=== PATIENT | male | born 1980 | race Caucasian/White ===

== ENCOUNTER 2017-12-15 10:38 | Emergency (ER) | payer OTHER, SELFPAY ==
[2017-12-15 10:39] VITALS: BP 113/89; PULSE 66; RESP 22; TEMP 36.6; O2SAT 100; BMI 22.1
--- NOTE | 2017-12-15 10:49 | CT_ITS ---
STUDY: CT BRAIN WITHOUT CONTRAST REASON FOR EXAM: Male, 37 years old. Headaches. Bilateral arm numbness. RADIATION DOSAGE (If Supplied By Facility): CTDIvol = ( 44.99 ) mGy, DLP = ( 745.49 ) mGycm TECHNIQUE: Transaxial CT imaging of the brain was performed without administration of intravenous contrast material. Individualized dose optimization techniques were used for this CT. COMPARISON: None. FINDINGS: Normal soft tissue structures. Normal calvarium. Normal size ventricles and extra-axial spaces for the patient's age. Normal white matter tracts of the cerebral hemispheres. Normal basal ganglia and thalami. Normal brainstem. Normal cerebellum. There is no intracranial hemorrhage. There are no findings of an acute ischemic infarction. Normal visualized paranasal sinuses. CT/Brain/Head without Contrast IMPRESSION: Normal unenhanced CT scan of the brain. Electronically Signed: Suraj Teresa MD at 11:33 EDT Tel [phone], Service support ,
[2017-12-15] MEDS: Ketorolac 30 MG/ML Syringe IM (11:10)
--- NOTE | 2017-12-15 11:55 | ED.VISSUMM ---
- ER Visit Summary Date of Service: 12/15/17 Chief Complaint: Headache History of Present Illness: The patient is a 37 M presenting with a fairly acute onset headache that happened at work approximately 2 hours ago. He reports a history of chronic fairly severe headaches which she believes are migraines but states that he has never been formally diagnosed with migraines. They are typically much worse during times of stress and anxiety. He has been under a fair amount of stress recently because he just took custody of his niece and he has been having financial issues as well. He denies suicidal thoughts or ideation. Denies depression. He [facility] at the [facility]. 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 He did not actually vomit and did not develop abdominal pain. The nausea resolved but he then had paresthesias in both of his forearms and hands. He also felt like he was hyperventilating. He did not have weakness or lateralizing symptoms. No facial droop or slurred speech. No difficulty walking. Physical Examination: Those are within normal limits. He is not in distress. Pupils are equal and reactive. Neck is supple. No neck tenderness or pain with range of motion. Heart tones are regular and without murmur. Lungs are clear bilaterally. Abdomen is soft and nontender. No focal or lateralizing neuro findings. No objective sensory deficit on neurologic exam. Thought content is normal. No suicidal thoughts or ideation. Test Results: CT brain is negative Emergency Department Course and Treatment: CT brain is negative within a few hours of symptom onset. I think the likelihood of missing a subarachnoid hemorrhage is extremely low. It is not the worst headache of his life and while it did develop fairly acutely, it still took at least 15 minutes of onset time, not a thunderclap headache by description. His neurologic exam is completely normal and he has no objective paresthesias or sensory deficits. He was given Toradol here and on reexamination he states that he feels completely back to normal. He can walk without difficulty. He denies suicidal thoughts or ideation. Mental status exam is normal. He feels strongly that his symptoms are secondary to stress and anxiety and reports having had similar issues in the past. Did not have neck pain or posterior headache that would suggest vertebral artery dissection or other concerning process. I [facility] and return here if he has any recurrence of symptoms. Treatment Plan: [facility] Disposition: Home in stable condition Impression: Initial encounter acute headache-resolved This note was generated with [employer] dictation software. It may contain incorrect words, spelling, and punctuation that were not noted in review of the chart prior to signing ED Disposition - Plan for ED Patient: Chief Complaint: Headache Instructions: ED Cephalgia Unspecified [facility] [Primary Care Provider] -
[2017-12-15 12:18] VITALS: BP 108/73; PULSE 61; RESP 14; O2SAT 100
== END 2017-12-15 12:19 | disposition home or self-care (01) ==
LOC: ED 11:53
PROVIDERS: Emergency Provider Emergency Medicine
DX: R51 Headache (principal); R11.0 Nausea; R20.2 Paresthesia of skin; Z72.0 Tobacco use
CPT/HCPCS: 70450; 96372; 99282

== ENCOUNTER 2022-03-31 16:52 | Emergency (ER) | payer OTHER, SELFPAY ==
[2022-03-31 16:53] VITALS: BP 153/73; PULSE 67; RESP 14; TEMP 36.2; O2SAT 100; BMI 26.1
[2022-03-31] MEDS: predniSONE 20 MG Tablet 60 MG PO (19:18)
[2022-03-31] MEDS: Naproxen 500 MG Tablet PO (19:18)
[2022-03-31] MEDS: Morphine 4 MG/ML Syringe 8 MG IM (19:21)
[2022-03-31 19:26] VITALS: PULSE 70; RESP 18; O2SAT 99
--- NOTE | 2022-03-31 20:16 | ED.VIS.BACK ---
HPI History of Present Illness Chief Complaint: Back Informant: patient Onset/Context/Timing Onset: Days (2 days) Context: Gradual Onset Narrative Narrative: Patient presents with right low back pain. He states he woke yesterday morning with right low back pain. He felt okay when he went to bed the night before. No recent change in activity, lifting, fall. Patient states he has pain in the posterior right hip region that wraps around his leg and shoots down his leg. He has no urinary symptoms. He went to urgent care and because he was not able to get x-rays to rule out bone cancer he was sent to the emergency room. Patient has not been taking anything for pain. PFSH PFSH no medical history Home Medications cholecalciferol (vitamin D3) 25 mcg (1,000 unit) tablet (Vitamin D3) 1,000 unit PO DAILY supplement 12/15/17 [History Last Taken 12/15/17 1000 UNIT] ferrous sulfate 325 mg (65 mg iron) tablet (Iron (ferrous sulfate)) 325 mg PO DAILY supplement 12/15/17 [History Last Taken 12/15/17 325 MG] hydrocodone-acetaminophen 5-325mg 5mg-325mg 1 tab PO Q6H PRN pain 3 days #10 tabs 03/31/22 [Rx Last Taken Unknown] naproxen 500 mg tablet (Naprosyn) 500 mg PO BID PRN pain #20 tabs 03/31/22 [Rx Last Taken Unknown] prednisone 20 mg tablet 40 mg PO DAILY #8 tabs 03/31/22 [Rx Last Taken Unknown] Allergy/AdvReac Type Severity Reaction Status Date / Time No Known Allergies Allergy Verified 03/31/22 16:53 Social History Smoking Status: Current every day smoker tobacco type: cigarettes ROS ROS ED Constitutional Constitutional ED: Denies chills or fever(s) Eyes Eyes: Denies change in vision or discharge from eye(s) ENT ENT ED: Denies discharge from eye(s), rhinorrhea or sore throat Cardiovascular Cardiovascular: Denies chest pain or palpitations Respiratory/Chest Respiratory/Chest: Denies cough or dyspnea Gastrointestinal Gastrointestinal: Denies abdominal pain, diarrhea, nausea or vomiting Genitourinary Genitourinary ED: Denies dysuria Musculoskeletal Musculoskeletal: Reports back pain and extremity pain Integumentary Denies Abrasions or rash Neurologic Neurologic: Denies headache(s) or weakness Allergic/Immunologic Allergic/Immunologic ED: Denies lip swelling or urticaria EXAM Physical Exam Const Vital Signs: 03/31/22 16:53 03/31/22 19:26 03/31/22 20:48 Temperature 97.2 F L Temperature Source Temporal Pulse Rate 67 70 57 L Respiratory Rate 14 18 15 Blood Pressure 153/73 H 124/79 H Blood Pressure Mean 99 Pulse Ox 100 99 99 Oxygen Delivery Method Room Air Room Air Positive well nourished and well developed General Appearance ED: well developed HEENT Reports normocephalic and head/scalp atraumatic Eyes PERRL and EOMs intact bilaterally Neck supple Chest Wall inspection of chest normal and palpation of chest normal Resp normal respiratory effort and clear to auscultation bilaterally Cardio regular rate and regular rhythm GI normal to inspection, nondistended, normoactive bowel sounds Palpation: soft Back/Spine Back/Spine Narrative: Reproducible tenderness over the right sciatic notch. No midline lumbar tenderness. Extremity normal to inspection Neuro oriented x3 and no sensory deficits noted Sensorium / Orientation: alert Motor Exam: strength 5/5 throughout Psych mental status grossly normal Skin no rashes or lesions noted MDM MDM MDM Narrative Medical decision making narrative: I discussed with the patient his findings consistent with sciatica. I do not believe he needs imaging. Patient is given Naprosyn and prednisone p.o. along with IM morphine. On repeat evaluation he is sleeping comfortably. He easily awakens. He is able to get up and ambulate to the restroom although does still have a slightly antalgic gait. He is given off work the next couple days and given prescriptions for Ariton, Naprosyn, and prednisone. Return instructions provided. Discharge Plan Triage Chief Complaint: Back ED Provider: Na Farr Dx/Rx/DC Orders Clinical Impression: Sciatica Instructions: ED Sciatica Prescriptions: New hydrocodone-acetaminophen 5-325 mg tablet 1 tab PO Q6H PRN (Reason: pain) 3 Days Qty: 10 0RF naproxen [Naprosyn] 500 mg tablet 500 mg PO BID PRN (Reason: pain) Qty: 20 0RF prednisone 20 mg tablet 40 mg PO DAILY Qty: 8 0RF No Action ferrous sulfate [Iron (ferrous sulfate)] 325 MG tablet 325 mg PO DAILY cholecalciferol (vitamin D3) [Vitamin D3] 1,000 UNIT tablet 1,000 unit PO DAILY Stand Alone Forms: ED Work / School Excuse [facility] Care Provider[facility] [facility] - 1-2 Weeks Disposition Disposition: Home, Self Care Discharge Date/Time: 03/31/22 21:15
[2022-03-31 20:48] VITALS: BP 124/79; PULSE 57; RESP 15; O2SAT 99
== END 2022-03-31 21:15 | disposition home or self-care (01) ==
PROVIDERS: Emergency Provider Emergency Medicine; Visit Provider Emergency Medicine
DX: M54.41 Lumbago with sciatica, right side (principal); F17.210 Nicotine dependence, cigarettes, uncomplicated; Z79.899 Other long term (current) drug therapy
CPT/HCPCS: 96372; 99282